=== PATIENT | female | born 1955 | race Caucasian/White ===

== ENCOUNTER → 2017-04-28 | Outpatient (CLI) | payer OTHER | LOC: MC.RAD 09:00 | DX: Z12.31 Encounter for screening mammogram for malignant neoplasm of breast (principal) ==

== ENCOUNTER → 2017-07-06 | Outpatient (CLI) | payer OTHER | LOC: COL.LAB 09:19 | DX: Z01.89 Encounter for other specified special examinations (principal) ==

== ENCOUNTER → 2018-07-24 | Outpatient (CLI) | payer OTHER | LOC: MC.RAD 10:40 | DX: Z12.31 Encounter for screening mammogram for malignant neoplasm of breast (principal) ==

== ENCOUNTER → 2018-08-01 | Outpatient (CLI) | payer OTHER | LOC: COL.LAB 09:37 | DX: E78.5 Hyperlipidemia, unspecified (principal); E55.9 Vitamin D deficiency, unspecified; Z83.3 Family history of diabetes mellitus; Z82.49 Family history of ischemic heart disease and other diseases of the circulatory system ==

== ENCOUNTER → 2019-01-30 | Outpatient (CLI) | payer OTHER ==
[2019-01-31 00:05] LABS: T3 FREE (TRI-IODOTHYRONINE) 2.8 pg/mL (1.7-3.7)
== END ==
LOC: COL.LAB 11:03
PROVIDERS: Internal Medicine
DX: M35.9 Systemic involvement of connective tissue, unspecified (principal); E03.9 Hypothyroidism, unspecified

== ENCOUNTER → 2019-06-27 | Outpatient (CLI) | payer OTHER | LOC: COL.LAB 09:08 | DX: Z82.49 Family history of ischemic heart disease and other diseases of the circulatory system (principal); Z83.3 Family history of diabetes mellitus ==

== ENCOUNTER → 2019-08-13 | Outpatient (CLI) | payer OTHER | LOC: MC.RAD 09:26 | DX: Z12.31 Encounter for screening mammogram for malignant neoplasm of breast (principal) ==

== ENCOUNTER → 2020-07-09 | Outpatient (CLI) | payer OTHER | LOC: COL.LAB 08:44 | DX: E78.41 Elevated Lipoprotein(a) (principal) ==

== ENCOUNTER 2021-02-09 13:45 | Outpatient (CLI) | payer OTHER ==
[~2021-02-09] VITALS: Ht 167.6 cm; Wt 72.5 kg
[2021-02-09] MEDS ORDERED: CRESTOR5 MG PO (14:32)
[2021-02-09] MEDS ORDERED: CALCIUM 600 MG1 EAC2 PO (14:33)
[2021-02-09] MEDS ORDERED: MASON NATURAL2000 IU PO (14:34)
[2021-02-09] MEDS ORDERED: ASPIRIN E.C. 8181 MG PO (14:34)
[2021-02-09] MEDS ORDERED: B COMPLEX #11 TA1 PO (14:35)
[2021-02-09] MEDS ORDERED: THE MEDICINE S200 M2 PO (14:35)
[2021-02-09 15:13] VITALS: BP 148/72; PULSE 72; TEMP 97.7
== END 2021-02-09 15:35 | disposition home or self-care (01) ==
LOC: EUO 13:45
DX: M81.0 Age-related osteoporosis without current pathological fracture (principal)
CPT/HCPCS: J3489

== ENCOUNTER → 2021-09-08 | Outpatient (CLI) | payer OTHER ==
[~2021-09-08] MED LIST: ASPIRIN E.C. 8181 MG PO; B COMPLEX #11 TA1 PO; CALCIUM 600 MG1 EAC2 PO; CRESTOR5 MG PO; MASON NATURAL2000 IU PO; THE MEDICINE S200 M2 PO
== END ==
LOC: COL.LAB 08:59
DX: Z01.89 Encounter for other specified special examinations (principal)